=== PATIENT | female | born 1995 | race Hispanic/Latino ===

== ENCOUNTER 2023-10-18 08:55 | Emergency (ER) | payer OTHER, MEDICAID ==
[2023-10-18] MEDS ORDERED: Fluconazole 100 MG TAB ONE (11:59)
== END 2023-10-18 10:42 | disposition home or self-care (01) ==
LOC: BURERS 08:55
DX: S93.412A Sprain of calcaneofibular ligament of left ankle, initial encounter (principal); X50.1XXA Overexertion from prolonged static or awkward postures, initial encounter; Y93.01 Activity, walking, marching and hiking; Y92.89 Other specified places as the place of occurrence of the external cause